=== PATIENT | male | born 1995 ===

== ENCOUNTER 2017-09-16 19:55 | Emergency (ER) | payer SELFPAY ==
[2017-09-16 21:35] VITALS: BP 105/62; PULSE 66; RESP 17; O2SAT 99
--- NOTE | 2017-09-16 22:27 | ED PDOC ---
HPI: CCC, URI, Sore Throat Time Seen by Provider: 09/16/17 22:10 Chief Complaint (Nursing): Fever Chief Complaint (Provider): fever History Per: Patient History/Exam Limitations: no limitations Onset/Duration Of Symptoms: Days (2) Current Symptoms Are (Timing): Still Present Location Of Pain: Diffuse Myalgias Additional History Per: Patient Additional Complaint(s): 22 y/o male presents with fever x 2 days. Associated headache, congestion, productive cough, bodyaches. Denies ear pain, throat pain, nausea/vomiting, chest pain, shortness of breath, palpitations, abdominal pain, changes in bowel movements, recent travel, sick contacts. Advil taken 5 hours prior to arrival. Past Medical History Reviewed: Historical Data, Nursing Documentation, Vital Signs Vital Signs: Last Vital Signs Temp 99.2 F 09/16/17 21:32 Pulse 66 09/16/17 21:32 Resp 17 09/16/17 21:32 BP 105/62 09/16/17 21:32 Pulse Ox 99 09/16/17 22:27 - Medical History PMH: No Chronic Diseases - Surgical History Surgical History: No Surg Hx - Family History Family History: States: No Known Family Hx - Living Arrangements Living Arrangements: With Family - Social History Current smoker - smoking cessation education provided: No - Home Medications Home Medications: Ambulatory Orders Medication Instructions Recorded Oseltamivir [Tamiflu] 75 mg PO BID #9 cap 09/16/17 - Allergies Allergies/Adverse Reactions: Allergies Allergy/AdvReac Type Severity Reaction Status Date / Time No Known Allergies Allergy Verified 09/16/17 21:35 Review of Systems ROS Statement: Except As Marked, All Systems Reviewed And Found Negative Constitutional: Positive for: Fever, Chills ENT: Positive for: Nose Congestion Respiratory: Positive for: Cough Physical Exam - Reviewed Nursing Documentation Reviewed: Yes Vital Signs Reviewed: Yes - Physical Exam Appears: Positive for: Well, Non-toxic, No Acute Distress Head Exam: Positive for: ATRAUMATIC, NORMAL INSPECTION, NORMOCEPHALIC Skin: Positive for: Normal Color Eye Exam: Positive for: Normal appearance ENT: Positive for: Normal ENT Inspection Cardiovascular/Chest: Positive for: Regular Rate, Rhythm Respiratory: Positive for: Normal Breath Sounds Gastrointestinal/Abdominal: Positive for: Normal Exam Back: Positive for: Normal Inspection Extremity: Positive for: Normal ROM Neurologic/Psych: Positive for: Alert, Oriented - ECG O2 Sat by Pulse Oximetry: 99 - Radiology X-Ray: Viewed By Me X-Ray Interpretation: No Acute Disease - Progress ED Course And Treament: flu, chest xray, tylenol PO Patient educated on findings, discharged with rx Tamiflu (dose given in ED) Advised Ibuprofen/Tylenol PRN fever. Fluids. Rest. Follow up PMD 2-3 days. Return precautions given Disposition - Clinical Impression Clinical Impression: Influenza - Patient ED Disposition Is Patient to be Admitted: No Counseled Patient/Family Regarding: Studies Performed, Diagnosis, Need For Followup, Rx Given - Disposition Referrals: [facility] [Outside] Disposition: Routine/Home Disposition Time: 23:50 Condition: IMPROVED Prescriptions: Oseltamivir [Tamiflu] 75 mg PO BID #9 cap Instructions: Influenza (ED)
[2017-09-17 00:23] VITALS: TEMP 99.8
== END 2017-09-17 00:26 | disposition home or self-care (01) ==
LOC: H.ER 19:55
DX: J11.1 Influenza due to unidentified influenza virus with other respiratory manifestations (principal)